=== PATIENT | male | born 1990 | race Caucasian/White ===

== ENCOUNTER 2019-03-13 19:54 | Emergency (ER) | payer BC ==
[2019-03-13 20:05] VITALS: TEMP 98.1
--- NOTE | 2019-03-13 20:29 | ED ---
Psych HPI - General Source: patient, RN notes reviewed, old records reviewed Mode of arrival: ambulatory - History of Present Illness MD Complaint: suicidal ideation, feels depressed -: days(s) Associated Psychiatric Symptoms: depression, suicidal ideation History of same: Yes Quality: constant Improves With: medication Worsens With: medication Context: recent drug abuse, significant life stressor Associated Symptoms: denies other symptoms Treatments Prior to Arrival: placed on mental health hold If Self Harm: admits thoughts of self harm <Semaj Mendiola - Last Filed: 03/13/19 20:36> <Mike Gurrola - Last Filed: 03/14/19 00:41> - General Chief Complaint: Psychiatric Symptoms Stated Complaint: Mental Health Time Seen by Provider: 03/13/19 20:12 - History of Present Illness Initial Comments: this is a 2-year-old male date ER for evaluation of severe depression decreased desire to live significant life stressors including possible impending loss of home inability care of child moistly relieving him, just also having difficulty with friend's difficulties in his social clubs as well as his workplace. Patient denying drugs or alcohol cipher marijuana no history of psychiatric illness or prior evaluation for superduper depression and suicidal ideation. Patient is crying during history taking (Semaj Mendiola) - Related Data Allergies Allergy/AdvReac Type Severity Reaction Status Date / Time No Known Allergies Allergy Verified 03/13/19 20:05 Review of Systems ROS Other: All systems not noted in ROS Statement are negative. <Semaj Mendiola - Last Filed: 03/13/19 20:36> ROS Other: All systems not noted in ROS Statement are negative. <Mike Gurrola - Last Filed: 03/14/19 00:41> ROS Statement: Those systems with pertinent positive or pertinent negative responses have been documented in the HPI. Past Medical History Past Medical History: No Reported History Additional Past Medical History / Comment(s): ppd History of Any Multi-Drug Resistant Organisms: None Reported Past Surgical History: No Surgical Hx Reported Past Psychological History: Anxiety, Depression Smoking Status: Current every day smoker Past Alcohol Use History: Occasional Past Drug Use History: Marijuana <Semaj Mendiola - Last Filed: 03/13/19 20:36> General Exam Limitations: no limitations General appearance: alert, in no apparent distress Head exam: Present: atraumatic, normocephalic, normal inspection Eye exam: Present: normal appearance, PERRL, EOMI. Absent: scleral icterus, conjunctival injection, periorbital swelling ENT exam: Present: normal exam, mucous membranes moist Neck exam: Present: normal inspection. Absent: tenderness, meningismus, lymphadenopathy Respiratory exam: Present: normal lung sounds bilaterally. Absent: respiratory distress, wheezes, rales, rhonchi, stridor Cardiovascular Exam: Present: regular rate, normal rhythm, normal heart sounds. Absent: systolic murmur, diastolic murmur, rubs, gallop, clicks GI/Abdominal exam: Present: soft, normal bowel sounds. Absent: distended, tenderness, guarding, rebound, rigid Extremities exam: Present: normal inspection, full ROM, normal capillary refill. Absent: tenderness, pedal edema, joint swelling, calf tenderness Back exam: Present: normal inspection Neurological exam: Present: alert, oriented X3, CN II-XII intact Psychiatric exam: Present: normal affect, normal mood Skin exam: Present: warm, dry, intact, normal color. Absent: rash <Semaj Mendiola - Last Filed: 03/13/19 20:36> Course <Semaj Mendiola - Last Filed: 03/13/19 20:36> Vital Signs 03/13/19 20:00 Temperature 98.1 F Pulse Rate 100 Respiratory 20 Rate Blood Pressure 141/89 O2 Sat by Pulse 96 Oximetry - Reevaluation(s) Reevaluation #1: 03/13/19 20:37 medical clear for psychiatric evaluation (Semaj Mendiola) Disposition <Semaj Mendiola - Last Filed: 03/13/19 20:36> Is patient prescribed a controlled substance at d/c from ED?: No <Mike Gurrola - Last Filed: 03/14/19 00:41> Clinical Impression: Mood disorder Disposition: HOME SELF-CARE Condition: Good Instructions (If sedation given, give patient instructions): Mood Disorders (ED) Referrals: None,Stated [Primary Care Provider] - 1-2 days
[2019-03-14 00:56] VITALS: BP 116/68; PULSE 98; RESP 47
== END 2019-03-14 00:51 | disposition home or self-care (01) ==
LOC: EC 19:54
DX: F32.9 Major depressive disorder, single episode, unspecified (principal); R45.851 Suicidal ideations; F17.200 Nicotine dependence, unspecified, uncomplicated; Z63.79 Other stressful life events affecting family and household
CPT/HCPCS: 82075; 99285

== ENCOUNTER 2019-04-07 07:38 | Emergency (ER) | payer BC ==
[2019-04-07 07:44] VITALS: TEMP 97.7
--- NOTE | 2019-04-07 07:58 | ED ---
General Adult HPI - General Chief complaint: Head Injury Stated complaint: FALL Time Seen by Provider: 04/07/19 07:45 Source: patient Mode of arrival: wheelchair Limitations: no limitations - History of Present Illness Initial comments: Dictation was produced using [employer] dictation software. please excuse any grammatical, word or spelling errors. Chief Complaint: 29-year-old male with no significant past medical history presents with episode of lower extremity weakness, fall and head trauma. He also has abdominal pain. History of Present Illness: Is a 29-year-old male he woke up this morning getting ready for work when she was walking back from the bathroom. He felt a brief episode of lower extremity weakness causing him to fall. Patient was at home by himself. Patient does not know if he lost consciousness. Patient has been battling nausea vomiting and diarrhea for the last several days. Patient states he is also diffuse abdominal pain. He has been feeling nauseous. Patient reports that his pain is diffuse however worse in the suprapubic area. Denies any medical problems. Patient states that after that are not he felt better. States that his emesis is nonbloody and non-bilious. Same with his diarrhea is nonbloody nonbilious. He reports his diarrhea is watery. No recent travel, antibiotics or hospitalizations. She denies any weakness, numbness to any paresthesias to extremities. He has no previous history of syncope. He does report a mild headache since the fall. Fall occurred approximately 1 hour prior to arrival. The ROS documented in this emergency department record has been reviewed and confirmed by me. Those systems with pertinent positive or negative responses have been documented in the HPI. All other systems are other negative and/or noncontributory. PHYSICAL EXAM: General Impression: Alert and oriented x3, not in acute distress HEENT: Small hematoma over the forehead, extra-ocular movements intact, pupils equal and reactive to light bilaterally, mucous membranes moist. Cardiovascular: Heart regular rate and rhythm, S1&S2 audible, no murmurs, rubs or gallops Chest: Lungs clear to auscultation bilaterally, no rhonchi, no wheeze, no rales Abdomen: Diffuse abdominal tenderness worse in the suprapubic area, there is tenderness at McBurney's point Musculoskeletal: Pulses present and equal in all extremities, no peripheral edema Motor: no focal deficits noted Neurological: CN II-XII grossly intact, no focal motor or sensory deficits noted Skin: Intact with no visualized rashes Psych: Normal affect and mood ED course: 29-year-old male presents with episode concerning for syncope, fall, head trauma and abdominal pain. Vital signs upon arrival are within acceptable limits. Laboratory evaluation obtained. Mild leukocytosis of 13.9, coag panel unremarkable. Metabolic panel is negative. Urinalysis is negative. Computed tomography scan of the brain, acute abdominal series is negative. Given the patient an elevated white count there was concern of acute appendicitis. CT abdomen and pelvis was unremarkable for appendicitis. Patient observed in emergency department for couple hours. No changes in symptoms. Patient clear for discharge. EKG interpretation: Ventricular rate 82, normal sinus rhythm,. Interval 1:30, care is 92, QTc 432. No MO prolongation, no QTC prolongation, no ST or T-wave changes noted. Overall, this EKG is unremarkable - Related Data Allergies Allergy/AdvReac Type Severity Reaction Status Date / Time No Known Allergies Allergy Verified 03/13/19 20:05 Review of Systems ROS Statement: Those systems with pertinent positive or pertinent negative responses have been documented in the HPI. ROS Other: All systems not noted in ROS Statement are negative. Past Medical History Past Medical History: No Reported History Additional Past Medical History / Comment(s): ppd History of Any Multi-Drug Resistant Organisms: None Reported Past Surgical History: No Surgical Hx Reported Past Psychological History: Anxiety, Bipolar, Depression Smoking Status: Current every day smoker Past Alcohol Use History: Occasional Past Drug Use History: Marijuana General Exam Limitations: no limitations Course Vital Signs 04/07/19 04/07/19 07:41 08:37 Temperature 97.7 F Pulse Rate 93 85 Respiratory 19 18 Rate Blood Pressure 118/81 123/77 O2 Sat by Pulse 96 98 Oximetry Medical Decision Making - Lab Data Result diagrams: 04/07/19 08:05 04/07/19 08:05 Lab Results 04/07/19 04/07/19 04/07/19 Range/Units 08:05 08:05 08:05 WBC 13.9 H (3.8-10.6) k/uL RBC 5.62 (4.30-5.90) m/uL Hgb 17.4 (13.0-17.5) gm/dL Hct 50.1 (39.0-53.0) % MCV 89.1 (80.0-100.0) fL MCH 31.0 (25.0-35.0) pg MCHC 34.8 (31.0-37.0) g/dL RDW 12.3 (11.5-15.5) % Plt Count 242 (150-450) k/uL Neutrophils % 85 % Lymphocytes % 7 % Monocytes % 4 % Eosinophils % 2 % Basophils % 2 % Neutrophils # 11.8 H (1.3-7.7) k/uL Lymphocytes # 0.9 L (1.0-4.8) k/uL Monocytes # 0.6 (0-1.0) k/uL Eosinophils # 0.2 (0-0.7) k/uL Basophils # 0.2 (0-0.2) k/uL PT 9.5 (9.0-12.0) sec INR 0.9 (<1.2) APTT 23.8 (22.0-30.0) sec Sodium 140 (137-145) mmol/L Potassium 4.5 (3.5-5.1) mmol/L Chloride 105 (98-107) mmol/L Carbon Dioxide 25 (22-30) mmol/L Anion Gap 10 mmol/L BUN 23 H (9-20) mg/dL Creatinine 0.76 (0.66-1.25) mg/dL Est GFR (CKD-EPI)AfAm >90 (>60 ml/min/1.73 sqM) Est GFR (CKD-EPI)NonAf >90 (>60 ml/min/1.73 sqM) Glucose 114 H (74-99) mg/dL Calcium 9.8 (8.4-10.2) mg/dL Magnesium 1.6 (1.6-2.3) mg/dL Total Bilirubin 0.6 (0.2-1.3) mg/dL AST 49 (17-59) U/L ALT 94 H (4-49) U/L Alkaline Phosphatase 83 (38-126) U/L Total Protein 8.0 (6.3-8.2) g/dL Albumin 4.8 (3.5-5.0) g/dL Lipase 25 (23-300) U/L Urine Color Urine Appearance (Clear) Urine pH (5.0-8.0) Ur Specific Barlow (1.001-1.035) Urine Protein (Negative) Urine Glucose (UA) (Negative) Urine Ketones (Negative) Urine Blood (Negative) Urine Nitrite (Negative) Urine Bilirubin (Negative) Urine Urobilinogen (<2.0) mg/dL Ur Leukocyte Esterase (Negative) Urine RBC (0-5) /hpf Urine WBC (0-5) /hpf Ur Squamous Epith Cells (0-4) /hpf Hyaline Casts (0-2) /lpf Urine Mucus (None) /hpf 04/07/19 Range/Units 08:05 WBC (3.8-10.6) k/uL RBC (4.30-5.90) m/uL Hgb (13.0-17.5) gm/dL Hct (39.0-53.0) % MCV (80.0-100.0) fL MCH (25.0-35.0) pg MCHC (31.0-37.0) g/dL RDW (11.5-15.5) % Plt Count (150-450) k/uL Neutrophils % % Lymphocytes % % Monocytes % % Eosinophils % % Basophils % % Neutrophils # (1.3-7.7) k/uL Lymphocytes # (1.0-4.8) k/uL Monocytes # (0-1.0) k/uL Eosinophils # (0-0.7) k/uL Basophils # (0-0.2) k/uL PT (9.0-12.0) sec INR (<1.2) APTT (22.0-30.0) sec Sodium (137-145) mmol/L Potassium (3.5-5.1) mmol/L Chloride (98-107) mmol/L Carbon Dioxide (22-30) mmol/L Anion Gap mmol/L BUN (9-20) mg/dL Creatinine (0.66-1.25) mg/dL Est GFR (CKD-EPI)AfAm (>60 ml/min/1.73 sqM) Est GFR (CKD-EPI)NonAf (>60 ml/min/1.73 sqM) Glucose (74-99) mg/dL Calcium (8.4-10.2) mg/dL Magnesium (1.6-2.3) mg/dL Total Bilirubin (0.2-1.3) mg/dL AST (17-59) U/L ALT (4-49) U/L Alkaline Phosphatase (38-126) U/L Total Protein (6.3-8.2) g/dL Albumin (3.5-5.0) g/dL Lipase (23-300) U/L Urine Color Yellow Urine Appearance Clear (Clear) Urine pH 5.0 (5.0-8.0) Ur Specific Barlow 1.025 (1.001-1.035) Urine Protein Negative (Negative) Urine Glucose (UA) Negative (Negative) Urine Ketones Negative (Negative) Urine Blood Trace H (Negative) Urine Nitrite Negative (Negative) Urine Bilirubin Negative (Negative) Urine Urobilinogen <2.0 (<2.0) mg/dL Ur Leukocyte Esterase Negative (Negative) Urine RBC <1 (0-5) /hpf Urine WBC 1 (0-5) /hpf Ur Squamous Epith Cells <1 (0-4) /hpf Hyaline Casts 3 H (0-2) /lpf Urine Mucus Few H (None) /hpf Disposition Clinical Impression: Abdominal pain Disposition: HOME SELF-CARE Condition: Good Instructions (If sedation given, give patient instructions): Abdominal Pain (ED) Is patient prescribed a controlled substance at d/c from ED?: No Referrals: None,Stated [Primary Care Provider] - 1-2 days Time of Disposition: 09:36
[2019-04-07 08:20] LABS: Basophils # (A) 0.2 k/uL (0-0.2); Basophils % (A) 2 %; Eosinophils # (A) 0.2 k/uL (0-0.7); Eosinophils % (A) 2 %; HCT 50.1 % (39.0-53.0); HGB 17.4 gm/dL (13.0-17.5); Lymphocytes # (A) 0.9 k/uL (1.0-4.8); Lymphocytes % (A) 7 %; MCHC 34.8 g/dL (31.0-37.0); MCV 89.1 fL (80.0-100.0); Mean Platelet Volume 7.2; Monocytes # (A) 0.6 k/uL (0-1.0); Monocytes % (A) 4 %; Neutrophils # (A) 11.8 k/uL (1.3-7.7); Neutrophils % (A) 85 %; Platelet Count 242 k/uL (150-450); RBC 5.62 m/uL (4.30-5.90); RDW 12.3 % (11.5-15.5); WBC 13.9 k/uL (3.8-10.6)
[2019-04-07] MEDS ORDERED: KETOROLAC 30 MG/ML 1 ML VIAL IVP STA (08:24)
--- NOTE | 2019-04-07 08:25 | CT ---
EXAMINATION TYPE: CT brain wo con DATE OF EXAM: 04/07/2019 COMPARISON: None. HISTORY: Fall, head trauma with headache. CT DLP: 996 mGycm. Automated Exposure Control for Dose Reduction was Utilized. TECHNIQUE: CT scan of the head is performed without contrast. FINDINGS: There is no acute intracranial hemorrhage, mass effect, or midline shift identified. The ventricles and sulci are within normal limits in size. Thompson-white matter differentiation is preserv ed. The globes are intact and the visualized sinuses are clear. The calvarium is intact. IMPRESSION: No acute intracranial hemorrhage, mass effect, or midline shift is seen.
[2019-04-07 08:28] LABS: INR 0.9 (<1.2); Partial Thromboplastin Time 23.8 sec (22.0-30.0); Prothrombin Time 9.5 sec (9.0-12.0)
[2019-04-07 08:34] LABS: ALT 94 U/L (4-49); AST 49 U/L (17-59); African American GFR (CKD) >90 (>60 ml/min/1.73 sqM); Albumin 4.8 g/dL (3.5-5.0); Alkaline Phosphatase 83 U/L (38-126); Anion Gap 10 mmol/L; Appearance,Urine Clear (Clear); Bilirubin,Urine Negative (Negative); Blood Urea Nitrogen 23 mg/dL (9-20); Blood,Urine Trace (Negative); Calcium 9.8 mg/dL (8.4-10.2); Carbon Dioxide 25 mmol/L (22-30); Chloride 105 mmol/L (98-107); Color,Urine Yellow; Glucose 114 mg/dL (74-99); Glucose,Urine (UA) Negative (Negative); Hyaline Casts,Urine 3 /lpf (0-2); Ketones,Urine Negative (Negative); Leukocyte Esterase,Urine Negative (Negative); Magnesium 1.6 mg/dL (1.6-2.3); Mucus,Urine Few /hpf; Nitrite,Urine Negative (Negative); Non-African American GFR(CKD) >90 (>60 ml/min/1.73 sqM); Potassium 4.5 mmol/L (3.5-5.1); Protein,Urine Negative (Negative); RBC,Urine <1 /hpf (0-5); Sodium 140 mmol/L (137-145); Specific Gravity,Urine 1.025 (1.001-1.035); Squamous Epithelial Cell,Urine <1 /hpf (0-4); Total Bilirubin 0.6 mg/dL (0.2-1.3); Urobilinogen,Urine <2.0 mg/dL (<2.0); WBC,Urine 1 /hpf (0-5)
[2019-04-07 08:38] VITALS: RESP 18
--- NOTE | 2019-04-07 08:41 | XR ---
EXAMINATION TYPE: XR abdomen acute w cxr DATE OF EXAM: 04/07/2019 COMPARISON: NONE HISTORY: Pain, nausea and dizziness TECHNIQUE: Supine, upright, and frontal chest views of the abdomen and chest are obtained. FINDINGS: There is no evidence for pneumoperitoneum. The bowel gas pattern is unremarkable as there is air throughout nondilated small and large bowel. No sizeable air fluid levels. No mass effects are seen. No unusual calcifications. IMPRESSION: Unremarkable study
--- NOTE | 2019-04-07 09:29 | CT ---
EXAMINATION TYPE: CT abdomen pelvis w con DATE OF EXAM: 04/07/2019 COMPARISON: Chest x-ray with acute abdominal series from earlier today HISTORY: RLQ pain CT DLP: 1330.1 mGycm Automated exposure control for dose reduction was used. TECHNIQUE: Helical acquisition of images was performed from the lung bases through the pelvis. CONTRAST: Performed without Oral Contrast and with IV Contrast, patient injected with 100 mL of Isovue 300. FINDINGS: LUNG BASES: Dependent atelectasis in both bases. Heart size upper limits of normal. LIVER/GB: Liver is markedly hypodense consistent with diffuse fatty infiltration. It measures upper l imits of normal. PANCREAS: No significant abnormality is seen. SPLEEN: Spleen measures upper limits of normal. ADRENALS: No significant abnormality is seen. KIDNEYS: Symmetric cortical medullary uptake and excretion without hydronephrosis seen bilaterally. N o intraluminal calculus in bladder. Single right pelvic phlebolith on axial image 87 ABDOMINAL AND PELVIC ADENOPATHY: None visualized REPRODUCTIVE ORGANS: No significant abnormality is seen URINARY BLADDER: No significant abnormality is seen. OSSEOUS STRUCTURES: No significant abnormality is seen. BOWEL: Suboptimal evaluation of bowel without enteric contrast. Stomach is poorly distended and thus suboptimally evaluated. No suspicious small or large bowel dilatation. Normal-appearing appendix is seen and coronal images 43 through 51 and axial images 60 through 65. No suspicious dilatation or liza rounding fat stranding. Mild wall thickening through the left and sigmoid colon with occasional diver ticula involving sigmoid colon. No significant fat stranding. Terminal ileum is noted within normal l imits coronal image 46. OTHER: Tiny fat-containing umbilical hernia axial image 54. IMPRESSION: 1. No CT evidence for acute appendicitis. 2. Perhaps mild distal colitis, correlate clinically. Differential includes infectious and inflammato ry etiologies. Otherwise no suspicious acute findings seen to account for patient's symptoms.
[2019-04-07 09:48] VITALS: BP 114/78; PULSE 75
== END 2019-04-07 09:44 | disposition home or self-care (01) ==
LOC: EC 07:38
DX: R10.84 Generalized abdominal pain (principal); R11.2 Nausea with vomiting, unspecified; R51 Headache; F17.200 Nicotine dependence, unspecified, uncomplicated; D72.829 Elevated white blood cell count, unspecified
CPT/HCPCS: 36415; 93005; 80053; 83690; 83735; 85025; 85610; 85730; 81001; 74022; 70450; 74177; 99284; 96374; J1885; Q9967

== ENCOUNTER 2019-05-12 12:31 | Emergency (ER) | payer BC ==
[2019-05-12] MEDS ORDERED: ONDANSETRON ODT 4 MG TAB PO STA (12:55)
[2019-05-12] MEDS ORDERED: IBUPROFEN 600 MG TAB PO STA (12:55)
[2019-05-12] MEDS ORDERED: ACETAMINOPHEN TAB 500 MG TAB PO STA (12:55)
--- NOTE | 2019-05-12 13:06 | ED ---
General Adult HPI - General Chief complaint: Fever Stated complaint: vomiting Time Seen by Provider: 05/12/19 12:43 Source: patient, RN notes reviewed Mode of arrival: ambulatory Limitations: no limitations - History of Present Illness Initial comments: 29-year-old male without any significant past medical history presents to the emergency department for a chief complaint of fever. Patient states he has had a fever for the past 3 days. States that he has had nausea vomiting as well. He denies diarrhea. He denies any associated abdominal pain. Patient states that he has had cough congestion sore throat and bilateral ear pain for the past 3 days as well. He does admit to body aches. Patient states he has been taking aspirin and Motrin for his fevers.Patient has no other complaints at this time including shortness of breath, chest pain, abdominal pain, nausea or vomiting, headache, or visual changes. - Related Data Previous Rx's Medication Instructions Recorded Ondansetron [Zofran ODT] 4 mg PO Q8HR PRN #15 tab 05/12/19 Allergies Allergy/AdvReac Type Severity Reaction Status Date / Time No Known Allergies Allergy Verified 05/12/19 12:40 Review of Systems ROS Statement: Those systems with pertinent positive or pertinent negative responses have been documented in the HPI. ROS Other: All systems not noted in ROS Statement are negative. Past Medical History Past Medical History: No Reported History Additional Past Medical History / Comment(s): ppd History of Any Multi-Drug Resistant Organisms: None Reported Past Surgical History: No Surgical Hx Reported Past Psychological History: Anxiety, Bipolar, Depression Smoking Status: Current every day smoker Past Alcohol Use History: Occasional Past Drug Use History: Marijuana General Exam Limitations: no limitations General appearance: alert, in no apparent distress Head exam: Present: atraumatic, normocephalic, normal inspection Eye exam: Present: normal appearance, PERRL, EOMI. Absent: scleral icterus, conjunctival injection, periorbital swelling ENT exam: Present: normal exam, normal oropharynx (Nonerythematous, uvula midline), mucous membranes moist, TM's normal bilaterally, normal external ear exam Neck exam: Present: normal inspection, full ROM. Absent: tenderness, meningismus, lymphadenopathy Respiratory exam: Present: normal lung sounds bilaterally. Absent: respiratory distress, wheezes, rales, rhonchi, stridor Cardiovascular Exam: Present: regular rate, normal rhythm, normal heart sounds. Absent: systolic murmur, diastolic murmur, rubs, gallop, clicks GI/Abdominal exam: Present: soft, normal bowel sounds. Absent: distended, tenderness, guarding, rebound, rigid Neurological exam: Present: alert Course Vital Signs 05/12/19 05/12/19 12:35 12:45 Temperature 101.4 F H 101.8 F H Pulse Rate 109 H Respiratory 20 Rate Blood Pressure 109/75 O2 Sat by Pulse 95 Oximetry Medical Decision Making - Medical Decision Making Vitals are stable. Patient is febrile with a temperature of 101.8 with reflexiv e tachycardia of 109. However he is well-appearing, nontoxic. Patient was given Motrin and Zofran. He did take Tylenol prior to arrival. Visible exam is unremarkable. No respiratory distress. Chest x-ray shows no acute cardiopulmonary process. Influenza B is detected. Patient has had symptoms for 3 days and is therefore outside of the recommended range of Tamiflu initiation. Discussed Motrin and Tylenol for fever. Discussed Zofran and small sips of fluids for nausea. Discussed returning if he has any worsening symptoms. - Lab Data Lab Results 05/12/19 05/12/19 Range/Units 12:39 12:39 Influenza Type A RNA Not Detected (Not Detectd) Influenza Type B (PCR) Detected H (Not Detectd) Group A Strep Rapid Negative (Negative) Disposition Clinical Impression: Influenza Disposition: HOME SELF-CARE Condition: Fair Instructions (If sedation given, give patient instructions): Fever in Adults (ED) Additional Instructions: Please take Motrin and Tylenol for fever. Take Zofran as needed for nausea. Take only small sips of fluids at a time to help prevent vomiting. Return to the emergency department if you have any worsening symptoms. Prescriptions: Ondansetron [Zofran ODT] 4 mg PO Q8HR PRN #15 tab PRN Reason: Nausea Is patient prescribed a controlled substance at d/c from ED?: No Referrals: Shun Donis [Primary Care Provider] - 1-2 days Time of Disposition: 13:58
--- NOTE | 2019-05-12 13:22 | XR ---
EXAMINATION TYPE: XR chest 2V DATE OF EXAM: 05/12/2019 COMPARISON: None HISTORY: 29-year-old male cough and fever TECHNIQUE: PA and lateral views FINDINGS: The cardiomediastinal silhouette, aorta, and pulmonary vasculature are within normal limits. Slightly low lung volumes with some crowded vascular markings. No consolidation or pleural effusion. IMPRESSION: No acute cardiopulmonary process.
[2019-05-12] MEDS ORDERED: ONDANSETRON 4 MG ODT STARTER PACK 2 TAB BTL PO STA (14:10)
[2019-05-12 14:18] VITALS: BP 115/77; PULSE 93; RESP 18; TEMP 98.7
== END 2019-05-12 14:18 | disposition home or self-care (01) ==
LOC: EC 12:31
DX: J10.1 Influenza due to other identified influenza virus with other respiratory manifestations (principal); R00.0 Tachycardia, unspecified; R11.2 Nausea with vomiting, unspecified; H92.03 Otalgia, bilateral; F17.200 Nicotine dependence, unspecified, uncomplicated
CPT/HCPCS: 71046; 87081; 87430; 87502; 99283

== ENCOUNTER 2020-10-04 17:25 | Emergency (ER) | payer BC, OTHER ==
[2020-10-04 17:32] VITALS: TEMP 97.8
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
[2020-10-04 17:53] LABS: Glucose,Whole Blood 90 mg/dL (75-99)
[2020-10-04 17:58] LABS: Basophils # (A) 0.1 k/uL (0-0.2); Basophils % (A) 1 %; Eosinophils # (A) 0.2 k/uL (0-0.7); Eosinophils % (A) 2 %; HCT 48.9 % (39.0-53.0); HGB 17.5 gm/dL (13.0-17.5); Lymphocytes # (A) 2.4 k/uL (1.0-4.8); Lymphocytes % (A) 21 %; MCH 31.7 pg (25.0-35.0); MCHC 35.8 g/dL (31.0-37.0); MCV 88.7 fL (80.0-100.0); Mean Platelet Volume 7.1; Monocytes # (A) 0.6 k/uL (0-1.0); Monocytes % (A) 5 %; Neutrophils % (A) 70 %; Platelet Count 274 k/uL (150-450); RBC 5.52 m/uL (4.30-5.90); RDW 12.2 % (11.5-15.5); WBC 11.5 k/uL (3.8-10.6)
[2020-10-04 18:13] LABS: ALT 60 U/L (4-49); AST 40 U/L (17-59); African American GFR (CKD) >90 (>60 ml/min/1.73 sqM); Albumin 5.1 g/dL (3.5-5.0); Alcohol <10 mg/dL; Alkaline Phosphatase 91 U/L (38-126); Anion Gap 12 mmol/L; Blood Urea Nitrogen 20 mg/dL (9-20); Calcium 10.1 mg/dL (8.4-10.2); Carbon Dioxide 25 mmol/L (22-30); Chloride 104 mmol/L (98-107); Glucose 95 mg/dL (74-99); Non-African American GFR(CKD) >90 (>60 ml/min/1.73 sqM); Sodium 141 mmol/L (137-145); Total Bilirubin 0.3 mg/dL (0.2-1.3)
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
[2020-10-04 18:22] LABS: INR 0.9 (<1.2); Partial Thromboplastin Time 23.6 sec (22.0-30.0); Prothrombin Time 10.1 sec (9.0-12.0)
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
[2020-10-04 19:47] LABS: Appearance,Urine Clear (Clear); Bilirubin,Urine Negative (Negative); Blood,Urine Negative (Negative); Color,Urine Yellow; Glucose,Urine (UA) Negative (Negative); Ketones,Urine Negative (Negative); Leukocyte Esterase,Urine Negative (Negative); Nitrite,Urine Negative (Negative); PH, Urine 5.5 (5.0-8.0); Protein,Urine Negative (Negative); Specific Gravity,Urine 1.025 (1.001-1.035); Urobilinogen,Urine <2.0 mg/dL (<2.0)
[2020-10-04 19:58] LABS: Amphetamine Screen,Urine Not Detected (NotDetected); Barbiturate Screen,Urine Not Detected (NotDetected); Benzodiazepines Screen,Urine Not Detected (NotDetected); Cocaine Screen,Urine Not Detected (NotDetected); Methadone Screen, Urine Not Detected (NotDetected); Opiate Screen,Urine Not Detected (NotDetected); Oxycodone Screen, Urine Not Detected (NotDetected); Phencyclidine Screen,Urine Not Detected (NotDetected); Tricyclic Antidepressant,Urine Not Detected (NotDetected); Urn Cannabinoid Scrn Not Detected (NotDetected)
[2020-10-04] MEDS ORDERED: KETOROLAC 15 MG/ML 1 ML VIAL IVP STA (20:31)
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
[2020-10-04 21:10] VITALS: BP 118/104; PULSE 84; RESP 20
== END 2020-10-04 21:08 | disposition home or self-care (01) ==
LOC: EC 17:25
DX: S93.402A Sprain of unspecified ligament of left ankle, initial encounter (principal); R51.9 Headache, unspecified; M25.511 Pain in right shoulder; M54.2 Cervicalgia; F31.9 Bipolar disorder, unspecified; F12.90 Cannabis use, unspecified, uncomplicated; F17.200 Nicotine dependence, unspecified, uncomplicated; Z79.1 Long term (current) use of non-steroidal anti-inflammatories (NSAID); V29.9XXA Motorcycle rider (driver) (passenger) injured in unspecified traffic accident, initial encounter; Y92.410 Unspecified street and highway as the place of occurrence of the external cause
CPT/HCPCS: 36415; 93005; 86900; 86901; 80053; 84484; 85025; 85610; 85730; 86850; 81003; 80306; 80320; 72170; 73000; 73030; 73610; 71045; 72125; 70450; 99284; 96374; L0120; J1885

== ENCOUNTER 2022-06-17 11:42 | Inpatient (IN) | payer BC, OTHER ==
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
[2022-06-17 14:46] LABS: Appearance,Urine Clear (Clear); Bilirubin,Urine Negative (Negative); Blood,Urine Negative (Negative); Color,Urine Light Yellow; Glucose,Urine (UA) Negative (Negative); Ketones,Urine Negative (Negative); Leukocyte Esterase,Urine Negative (Negative); Nitrite,Urine Negative (Negative); PH, Urine 5.5 (5.0-8.0); Protein,Urine Negative (Negative); Specific Gravity,Urine 1.008 (1.001-1.035); Urobilinogen,Urine <2.0 mg/dL (<2.0)
[2022-06-17 14:59] LABS: Amphetamine Screen,Urine Not Detected (NotDetected); Barbiturate Screen,Urine Not Detected (NotDetected); Benzodiazepines Screen,Urine Not Detected (NotDetected); Cocaine Screen,Urine Not Detected (NotDetected); Methadone Screen, Urine Not Detected (NotDetected); Opiate Screen,Urine Not Detected (NotDetected); Oxycodone Screen, Urine Not Detected (NotDetected); Phencyclidine Screen,Urine Not Detected (NotDetected); Tricyclic Antidepressant,Urine Not Detected (NotDetected); Urn Cannabinoid Scrn Detected (NotDetected)
[2022-06-17] MEDS ORDERED: MAGNESIUM HYDROXIDE 2,400 MG/10 ML CUP PO PRN (23:07)
[2022-06-17] MEDS ORDERED: LORazepam 1 MG TAB PO PRN (23:07)
[2022-06-17] MEDS ORDERED: MAG HYDROX/AL HYDROX/SIMETH 30 ML CUP PO PRN (23:07)
[2022-06-17] MEDS ORDERED: traZODone HCL 100 MG TAB PO PRN (23:11)
[2022-06-17] MEDS ORDERED: LORazepam 2 MG/ML INJ IM PRN (23:11)
[2022-06-18 08:19] LABS: Basophils % (A) 1 %; Eosinophils # (A) 0.3 k/uL (0-0.7); Eosinophils % (A) 4 %; HCT 46.7 % (39.0-53.0); HGB 16.4 gm/dL (13.0-17.5); Lymphocytes # (A) 0.7 k/uL (1.0-4.8); Lymphocytes % (A) 11 %; MCH 31.8 pg (25.0-35.0); MCHC 35.1 g/dL (31.0-37.0); MCV 90.6 fL (80.0-100.0); Mean Platelet Volume 7.4; Monocytes # (A) 0.6 k/uL (0-1.0); Monocytes % (A) 9 %; Neutrophils # (A) 5.2 k/uL (1.3-7.7); Neutrophils % (A) 75 %; Platelet Count 230 k/uL (150-450); RBC 5.15 m/uL (4.30-5.90); RDW 12.5 % (11.5-15.5); WBC 6.9 k/uL (3.8-10.6)
[2022-06-18 08:30] LABS: ALT 27 U/L (4-49); AST 29 U/L (17-59); African American GFR (CKD) >90 (>60 ml/min/1.73 sqM); Albumin 4.8 g/dL (3.5-5.0); Alkaline Phosphatase 86 U/L (38-126); Anion Gap 11 mmol/L; Blood Urea Nitrogen 13 mg/dL (9-20); Calcium 9.5 mg/dL (8.4-10.2); Carbon Dioxide 24 mmol/L (22-30); Chloride 104 mmol/L (98-107); Glucose 83 mg/dL (74-99); Non-African American GFR(CKD) >90 (>60 ml/min/1.73 sqM); Potassium 4.2 mmol/L (3.5-5.1); Sodium 139 mmol/L (137-145); Total Bilirubin 0.7 mg/dL (0.2-1.3); Total Protein 7.9 g/dL (6.3-8.2)
[2022-06-18] MEDS: FLUoxetine HCL 20 MG CAP PO SCH ×2 (08:37→08:38)
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
[2022-06-18] MEDS: ACETAMINOPHEN TAB 325 MG TAB PO PRN ×2 (13:20→20:26)
--- NOTE | 2022-06-18 14:50 | P.MDCNMH ---
History of Present Illness H&P Date: 06/18/22 History of Presenting Illness: Patient is a very pleasant 32-year-old male with a past medical history of PTSD, borderline personality disorder, anxiety, bipolar disorder, depression, and cannabis use. He presented to the emergency department on 06/17/22 for suicidal ideations. He is currently admitted to inpatient psychiatric unit and we have been consulted for medical evaluation while he is there. Patient was seen and fully evaluated in the mental health unit. He is ambulatory with a steady gait unassisted. Upon physical examination, patient cooperative and denies having any pain or complaints at this time. Patient denies having any headache, lightheadedness, dizziness, chest pain, palpitations, shortness of breath, abdominal pain, nausea, vomiting, or experiencing any numbness/tingling/weakness in his extremities. Patient reports that he works the third shift when he has not in the hospital and repeatedly requesting his prescription for trazodone to be ordered. Patient informed that these medications are being managed by primary psychiatric team. He reports Review of systems: Pertinent positives and negatives as discussed in HPI, a complete review of systems was performed and all other systems are negative. Physical exam: Vital signs reviewed and stable. General: Nontoxic, no distress and appears stated age. Derm: Skin warm and dry, normal coloration for ethnicity. Head: Atraumatic, normocephalic and symmetric. Eyes: EOMs intact, no lid lag, and anicteric sclera Mouth: no lip lesions, mucus membranes moist Cardiovascular: regular rate and rhythm, positive posterior tibial pulses bilaterally, and cap refill < 2 seconds. Lungs: Respirations even, regular, and unlabored on room air. Abdominal: soft, nontender to palpation Ext: ROM intact. No gross muscle atrophy, no edema, no contractures Neuro: Speech clear, face symmetrical and CN II-XII grossly intact with no noted focal neuro deficits Psych: Alert and oriented to person, place, time, and situation. Appropriate and pleasant affect. Assessment and Plan of Care: Labs reviewed. CBC and CMP were unremarkable. Lipid profile revealing elevated cholesterol of 271.0 and elevated LDL of 203.4. TSH 0.292. Urinalysis negative for infection. Low TSH -Possible hyperthyroidism, will need free T4 for further evaluation/diagnosis. -Order placed for free T4 at this time Cannabinoid use disorder -Recommend cessation Hyperlipidemia -Lipid profile revealed showing elevated cholesterol of 271.0 and elevated LDL of 203.4. Order placed for Lipitor 20 mg nightly. PTSD Borderline personality disorder Anxiety Bipolar disorder Depression Suicidal ideations -Management per primary admitting psychiatric team. Thank you for allowing us to participate in the care of this pleasant patient. Do not hesitate to contact us with questions. Someone can be reached from the [facility] hospitalist group all hours of the day at [phone] or via [employer]. Past Medical History Past Medical History: No Reported History Additional Past Medical History / Comment(s): ppd History of Any Multi-Drug Resistant Organisms: None Reported Past Surgical History: No Surgical Hx Reported Past Psychological History: Anxiety, Bipolar, Depression Smoking Status: Former smoker Past Alcohol Use History: None Reported Past Drug Use History: Marijuana Medications and Allergies Home Medications Medication Instructions Recorded Confirmed Type Acetaminophen Tab [Tylenol Tab] 1,000 mg PO Q6HR PRN 10/04/20 06/17/22 History Ibuprofen [Motrin] 600 mg PO Q6HR PRN #20 tab 10/04/20 06/17/22 Rx FLUoxetine HCL 40 mg PO DAILY 06/17/22 06/17/22 History FLUoxetine HCL [PROzac] 20 mg PO DAILY 06/17/22 06/17/22 History Lion's Du Supplement 1 dose PO DAILY 06/17/22 06/17/22 History traZODone HCL [Desyrel] 25 - 100 mg PO HS PRN 06/17/22 06/17/22 History Allergies Allergy/AdvReac Type Severity Reaction Status Date / Time [place] Allergy Anaphylaxis Uncoded 06/17/22 13:59 dust mites Allergy runny Uncoded 06/17/22 13:59 nose, sneezing Physical Exam Vitals: Vital Signs Temp Pulse Pulse Resp BP BP Pulse Ox 06/18/22 00:41 97.0 F L 88 18 128/90 96 06/17/22 20:00 75 18 119/76 98 Intake and Output 06/17/22 06/18/22 06/18/22 22:59 06:59 14:59 Other: Weight 83.8 kg Cranial Nerve Examination - Cranial Nerves Cranial Nerve II- Optic: Intact Cranial Nerve III- Oculomotor: Intact Cranial Nerve IV- Trochlear: Intact Cranial Nerve V- Trigeminal: Intact Cranial Nerve - Abducens: Intact Cranial Nerve VII- Facial: Intact Cranial Nerve VIII- Auditory: Intact Cranial Nerve IX- Glossopharyngeal: Intact Cranial Nerve X- Vagus: Intact Cranial Nerve XI- Accessory: Intact Cranial Nerve XII- Hypoglossal: Intact Results CBC & Chem 7: 06/18/22 07:26 06/18/22 07:26 Labs: Abnormal Lab Results - Last 24 Hours (Table) 06/17/22 06/18/22 06/18/22 Range/Units 14:17 07:26 07:26 Lymphocytes # 0.7 L (1.0-4.8) k/uL TSH 0.292 L (0.465-4.680) mIU/L U Marijuana (THC) Screen Detected H (NotDetected)
[2022-06-18 17:06] LABS: Chol/HDL Ratio 5.27 Ratio; LDL Cholesterol,Calculated 203.4 mg/dL (0.0-131.0); VLDL Calculation 16.24 mg/dL (5.00-40.00)
[2022-06-18] MEDS ORDERED: ATORVASTATIN 20 MG TAB PO SCH (21:00)
[2022-06-18] MEDS ORDERED: PRAZOSIN 1 MG CAP PO SCH (21:00)
[2022-06-19 06:55] VITALS: BP 128/69; PULSE 133; RESP 20; TEMP 97.5
[2022-06-19] MEDS: FLUoxetine HCL 20 MG CAP PO SCH ×2 (10:44)
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
== END 2022-06-19 12:59 | disposition home or self-care (01) | DRG 881 ==
LOC: EC 11:42 → 3MHU 23:04
PROVIDERS: ADMIT Psychiatry & Neurology Psychiatry; ATTEND Psychiatry & Neurology Psychiatry
DX: F43.21 Adjustment disorder with depressed mood (principal); R45.851 Suicidal ideations; F60.3 Borderline personality disorder; F43.10 Post-traumatic stress disorder, unspecified; F14.10 Cocaine abuse, uncomplicated; E03.9 Hypothyroidism, unspecified; F12.10 Cannabis abuse, uncomplicated; G47.00 Insomnia, unspecified; Z20.822 Contact with and (suspected) exposure to COVID-19; Z63.72 Alcoholism and drug addiction in family; Z79.899 Other long term (current) drug therapy; Z81.1 Family history of alcohol abuse and dependence; Z28.310 Unvaccinated for COVID-19; Z28.21 Immunization not carried out because of patient refusal; Z56.0 Unemployment, unspecified; Z62.810 Personal history of physical and sexual abuse in childhood; Z71.51 Drug abuse counseling and surveillance of drug abuser
CPT/HCPCS: 80053; 80061; 80306; 81003; 82075; 83036; 84439; 84443; 85025; 87636; 99285

== ENCOUNTER 2022-06-24 23:41 | Emergency (ER) | payer BC ==
[2022-06-25 01:02] VITALS: RESP 16
[2022-06-25 01:52] LABS: ALT 27 U/L (4-49); AST 30 U/L (17-59); African American GFR (CKD) >90 (>60 ml/min/1.73 sqM); Albumin 4.3 g/dL (3.5-5.0); Alkaline Phosphatase 71 U/L (38-126); Anion Gap 9 mmol/L; Blood Urea Nitrogen 19 mg/dL (9-20); Calcium 8.9 mg/dL (8.4-10.2); Carbon Dioxide 25 mmol/L (22-30); Chloride 105 mmol/L (98-107); Glucose 95 mg/dL (74-99); Non-African American GFR(CKD) >90 (>60 ml/min/1.73 sqM); Potassium 3.7 mmol/L (3.5-5.1); Sodium 139 mmol/L (137-145); Total Bilirubin 0.6 mg/dL (0.2-1.3); Total Protein 7.3 g/dL (6.3-8.2)
[2022-06-25 01:55] LABS: Basophils % (A) 0 %; Eosinophils # (A) 0.2 k/uL (0-0.7); Eosinophils % (A) 3 %; HCT 44.1 % (39.0-53.0); HGB 15.9 gm/dL (13.0-17.5); Lymphocytes # (A) 2.5 k/uL (1.0-4.8); Lymphocytes % (A) 38 %; MCH 31.9 pg (25.0-35.0); MCHC 36.2 g/dL (31.0-37.0); MCV 88.2 fL (80.0-100.0); Mean Platelet Volume 7.9; Monocytes # (A) 0.5 k/uL (0-1.0); Monocytes % (A) 7 %; Neutrophils # (A) 3.3 k/uL (1.3-7.7); Neutrophils % (A) 49 %; Platelet Count 267 k/uL (150-450); RDW 12.5 % (11.5-15.5); WBC 6.6 k/uL (3.8-10.6)
[2022-06-25 02:14] LABS: INR 0.9 (<1.2); Partial Thromboplastin Time 24.6 sec (22.0-30.0); Prothrombin Time 9.7 sec (9.0-12.0)
[2022-06-25 04:30] VITALS: BP 127/83; PULSE 73; TEMP 98.1
--- NOTE | 2022-06-25 04:43 | ED ---
General Adult HPI - General Chief complaint: Syncope Stated complaint: Syncope Time Seen by Provider: 06/25/22 04:32 Source: patient, EMS Mode of arrival: EMS Limitations: no limitations - History of Present Illness Initial comments: This is a 32-year-old male with a past medical history including anxiety, depression, PTSD and hypertension presented to the emergency department for a syncopal episode. The patient presented via EMS. The patient stated that he was started on a medication and was warned that could cause him to have orthostatic hypotension. The patient stated that he was at work and had an argument with his boss when he stood up quickly and had a syncopal episode. The patient stated that he remembered immediately what happened and stated that he felt warm and flushed before the episode. The patient was brought in and when I went to evaluate the patient, the patient had been in the waiting room and stated that he was ready to go home and denied of any further complaints. The patient denied any acute pain or distress as well as any shortness of breath, chest pain or any other pain. - Related Data Home Medications Medication Instructions Recorded Confirmed Acetaminophen Tab [Tylenol] 1,000 mg PO Q6HR PRN 10/04/20 06/17/22 Lion's Du Supplement 1 dose PO DAILY 06/17/22 06/17/22 traZODone HCL [Desyrel] 25 - 100 mg PO HS PRN 06/17/22 06/17/22 Previous Rx's Medication Instructions Recorded Ibuprofen [Motrin] 600 mg PO Q6HR PRN #20 tab 10/04/20 FLUoxetine HCL 40 mg PO DAILY 30 Days #30 cap 06/19/22 FLUoxetine HCL [PROzac] 20 mg PO DAILY 30 Days #30 cap 06/19/22 Prazosin [Minipress] 2 mg PO HS 30 Days #60 cap 06/19/22 Allergies Allergy/AdvReac Type Severity Reaction Status Date / Time [place] Allergy Anaphylaxis Uncoded 06/25/22 00:59 dust mites Allergy runny Uncoded 06/25/22 00:59 nose, sneezing Review of Systems ROS Statement: Those systems with pertinent positive or pertinent negative responses have been documented in the HPI. ROS Other: All systems not noted in ROS Statement are negative. Past Medical History Past Medical History: No Reported History Additional Past Medical History / Comment(s): ppd History of Any Multi-Drug Resistant Organisms: None Reported Past Surgical History: No Surgical Hx Reported Past Psychological History: Anxiety, Bipolar, Depression Smoking Status: Former smoker Past Alcohol Use History: None Reported Past Drug Use History: Marijuana General Exam Limitations: no limitations General appearance: alert, in no apparent distress Head exam: Present: atraumatic, normocephalic, normal inspection Eye exam: Present: normal appearance, PERRL Pupils: Present: normal accommodation ENT exam: Present: normal exam, normal oropharynx, mucous membranes moist Neck exam: Present: normal inspection, full ROM Respiratory exam: Present: normal lung sounds bilaterally Cardiovascular Exam: Present: regular rate, normal rhythm, normal heart sounds GI/Abdominal exam: Present: soft, normal bowel sounds Extremities exam: Present: normal inspection, full ROM Back exam: Present: normal inspection, full ROM Neurological exam: Present: alert, oriented X3, CN II-XII intact Psychiatric exam: Present: normal affect, normal mood Skin exam: Present: warm, dry Course Vital Signs 06/25/22 06/25/22 00:59 04:26 Temperature 98.8 F 98.1 F Pulse Rate 70 73 Respiratory 16 16 Rate Blood Pressure 130/88 127/83 O2 Sat by Pulse 95 92 L Oximetry EKG Findings - EKG Comments: EKG Findings:: An EKG was obtained and was interpreted by myself showing a rate of 62, DE interval 147, QRS duration of 103 and QTC of 427. This EKG showed a normal sinus rhythm with no ST segment elevation or depression noted. Medical Decision Making - Medical Decision Making Was pt. sent in by a medical professional or institution (, PA, SCRAP PREPARER, urgent care, hospital, or long term...) When possible be specific @ -No Did you speak to anyone other than the patient for history (EMS, parent, family, police, friend...)? What history was obtained from this source @ -No Did you review nursing and triage notes (agree or disagree)? Why? @ -I reviewed and agree with nursing and triage notes Were old charts reviewed (outside hosp., previous admission, EMS record, old EKG, old radiological studies, urgent care reports/EKG's, long term records)? Report findings @ -No old charts were reviewed Differential Diagnosis (chest pain, altered mental status, abdominal pain women, abdominal pain men, vaginal bleeding, weakness, fever, dyspnea, syncope, headache, dizziness, GI bleed, back pain, seizure, CVA, palpatations, mental health)? @ -Prostatic hypotension, vasovagal syncope EKG interpreted by me (3pts min.). @ -As above X-rays interpreted by me (1pt min.). @ -None done CT interpreted by me (1pt min.). @ -None done U/S interpreted by me (1pt. min.). @ -None done What testing was considered but not performed or refused? (CT, X-rays, U/S, labs)? Why? @ -A chest x-ray was considered however the patient stated that he was ready to go home and did not want this intervention performed. What meds were considered but not given or refused? Why? @ -None Did you discuss the management of the patient with other professionals (professionals i.e. , PA, SCRAP PREPARER, lab, RT, psych nurse, protective services social worker, outreach professional, teacher, executive officer, case folder)? Give summary @ -No Was smoking cessation discussed for >3mins.? @ -Yes Was critical care preformed (if so, how long)? @ -No Were there social determinants of health that impacted care today? How? (Homelessness, low income, unemployed, alcoholism, drug addiction, transportation, low edu. Level, literacy, decrease access to med. care, nursing home, rehab)? @ -No Was there de-escalation of care discussed even if they declined (Discuss DNR or withdrawal of care, Hospice)? DNR status @ -No What co-morbidities impacted this encounter? (DM, HTN, Smoking, COPD, CAD, Cancer, CVA, ARF, Chemo, Hep., AIDS, mental health diagnosis, sleep apnea, morbid obesity)? @ -PTSD, anxiety, depression and hypertension Was patient admitted / discharged? Hospital course, mention meds given and route, prescriptions, significant lab abnormalities, going to OR and other pertinent info. @ -The patient was seen and evaluated emergency department. Physical exam, the patient was resting in bed without any acute distress. Vital signs admission were stable. Laboratory workup was obtained in triage and was within normal limits. When I went to evaluate the patient, the patient stated that he had no complaints or symptoms and would like to be discharged home. The patient understood that the medications that he was warned about did indeed cause him to have orthostatic hypotension and he now knows to take his time when getting up while on this medication. The patient that when he further testing and instead wanted to follow-up as an outpatient. I did agree to this and the patient was discharged home in stable condition. Undiagnosed new problem with uncertain prognosis? @ -No Drug Therapy requiring intensive monitoring for toxicity (Heparin, Nitro, Insulin, Cardizem)? @ -No Were any procedures done? @ -No Diagnosis/symptom? @ -Vasovagal syncope secondary to orthostatic hypotension Acute, or Chronic, or Acute on Chronic? @ -Acute Uncomplicated (without systemic symptoms) or Complicated (systemic symptoms)? @ -Uncomplicated Side effects of treatment? @ -No Exacerbation, Progression, or Severe Exacerbation? @ -No Poses a threat to life or bodily function? How? (Chest pain, [place], [place], pneumonia, PE, COPD, DKA, ARF, appy, cholecystitis, CVA, Diverticulitis, Homicidal, Suicidal, threat to staff... and all critical care pts) @ -No - Lab Data Result diagrams: 06/25/22 01:04 06/25/22 01:04 Lab Results 06/25/22 06/25/22 06/25/22 Range/Units 01:04 01:04 01:04 WBC 6.6 (3.8-10.6) k/uL RBC 5.00 (4.30-5.90) m/uL Hgb 15.9 (13.0-17.5) gm/dL Hct 44.1 (39.0-53.0) % MCV 88.2 (80.0-100.0) fL MCH 31.9 (25.0-35.0) pg MCHC 36.2 (31.0-37.0) g/dL RDW 12.5 (11.5-15.5) % Plt Count 267 (150-450) k/uL MPV 7.9 Neutrophils % 49 % Lymphocytes % 38 % Monocytes % 7 % Eosinophils % 3 % Basophils % 0 % Neutrophils # 3.3 (1.3-7.7) k/uL Lymphocytes # 2.5 (1.0-4.8) k/uL Monocytes # 0.5 (0-1.0) k/uL Eosinophils # 0.2 (0-0.7) k/uL Basophils # 0.0 (0-0.2) k/uL PT 9.7 (9.0-12.0) sec INR 0.9 (<1.2) APTT 24.6 (22.0-30.0) sec Sodium 139 (137-145) mmol/L Potassium 3.7 (3.5-5.1) mmol/L Chloride 105 (98-107) mmol/L Carbon Dioxide 25 (22-30) mmol/L Anion Gap 9 mmol/L BUN 19 (9-20) mg/dL Creatinine 0.58 L (0.66-1.25) mg/dL Est GFR (CKD-EPI)AfAm >90 (>60 ml/min/1.73 sqM) Est GFR (CKD-EPI)NonAf >90 (>60 ml/min/1.73 sqM) Glucose 95 (74-99) mg/dL Calcium 8.9 (8.4-10.2) mg/dL Total Bilirubin 0.6 (0.2-1.3) mg/dL AST 30 (17-59) U/L ALT 27 (4-49) U/L Alkaline Phosphatase 71 (38-126) U/L Troponin I (0.000-0.034) ng/mL Total Protein 7.3 (6.3-8.2) g/dL Albumin 4.3 (3.5-5.0) g/dL 06/25/22 Range/Units 01:04 WBC (3.8-10.6) k/uL RBC (4.30-5.90) m/uL Hgb (13.0-17.5) gm/dL Hct (39.0-53.0) % MCV (80.0-100.0) fL MCH (25.0-35.0) pg MCHC (31.0-37.0) g/dL RDW (11.5-15.5) % Plt Count (150-450) k/uL MPV Neutrophils % % Lymphocytes % % Monocytes % % Eosinophils % % Basophils % % Neutrophils # (1.3-7.7) k/uL Lymphocytes # (1.0-4.8) k/uL Monocytes # (0-1.0) k/uL Eosinophils # (0-0.7) k/uL Basophils # (0-0.2) k/uL PT (9.0-12.0) sec INR (<1.2) APTT (22.0-30.0) sec Sodium (137-145) mmol/L Potassium (3.5-5.1) mmol/L Chloride (98-107) mmol/L Carbon Dioxide (22-30) mmol/L Anion Gap mmol/L BUN (9-20) mg/dL Creatinine (0.66-1.25) mg/dL Est GFR (CKD-EPI)AfAm (>60 ml/min/1.73 sqM) Est GFR (CKD-EPI)NonAf (>60 ml/min/1.73 sqM) Glucose (74-99) mg/dL Calcium (8.4-10.2) mg/dL Total Bilirubin (0.2-1.3) mg/dL AST (17-59) U/L ALT (4-49) U/L Alkaline Phosphatase (38-126) U/L Troponin I <0.012 (0.000-0.034) ng/mL Total Protein (6.3-8.2) g/dL Albumin (3.5-5.0) g/dL Disposition Clinical Impression: Vasovagal syncope Disposition: HOME SELF-CARE Condition: Stable Is patient prescribed a controlled substance at d/c from ED?: No Referrals: None,Stated [Primary Care Provider] - 1-2 days Time of Disposition: 04:40
== END 2022-06-25 05:10 | disposition home or self-care (01) ==
LOC: EC 23:41
DX: R55 Syncope and collapse (principal); I10 Essential (primary) hypertension; F31.9 Bipolar disorder, unspecified; F41.9 Anxiety disorder, unspecified; F12.90 Cannabis use, unspecified, uncomplicated; Z87.891 Personal history of nicotine dependence; Z88.8 Allergy status to other drugs, medicaments and biological substances
CPT/HCPCS: 36415; 80053; 84484; 85025; 85610; 85730; 93005; 99284